=== PATIENT | female | born 1995 | race Caucasian/White ===

== ENCOUNTER 2023-01-21 04:19 | Inpatient (IN) ==
[2023-01-21] MEDS ORDERED: OXYTOCIN 30 UNITS/500 ML BAG IV PRN ×2 (04:33→13:28)
[2023-01-21] MEDS ORDERED: LIDOCAINE 1% LOCAL 20 ML VIAL INFIL PRN (04:33)
--- NOTE | 2023-01-21 04:36 | History & Physical Report ---
Date of Service January 21, 2023 Assessment & Plan (1) 40 weeks gestation of : (2) Normal labor: Plan now demonstrating labor. admit. epidural as desired. arom/pit as indicated. fetus category one. anticipate . History of Present Illness Chief Complaint: contractions Primary Care Provider: Cary Maldonado Angelia Patient is a 27yowf with iup at 40 4/7 weeks who returns to labor and delivery with worsening contractions. Was monitored for several hours and did not change. Now notes contractions much worse. and Delivery Plans IOL 12/24/22 OB Labs: Blood Type A Positive 06/28/22 Antibody Screen NEGATIVE 06/28/22 Hemoglobin 12.6 g/dl (12.0-16.0) 10/25/22 Hematocrit 37.0 % (37.0-47.0) 10/25/22 Mean Corpuscular Volume 86.6 fL (80.0-100.0) 06/28/22 Platelet Count 295 K/uL (130-400) 06/28/22 Rubella IgG Antibody Immune (Immune) 06/28/22 Rapid Plasma Reagin Nonreactive (Nonreactive) 06/28/22 Hepatitis B Surface Antigen. NON-REACTIVE (NON-REACTIVE) 06/28/22 Hepatitis C Antibody (EIA) NON-REACTIVE (NON-REACTIVE) 06/28/22 HIV (1&2) Ag and Ab Confirmation NON-REACTIVE (NON-REACTIVE) 06/28/22 Glucose 1 Hour 50 gm Load 148 mg/dl (70-130) H 08/01/22 OB Optional Labs: Chlamydia trachomatis RNA Not Detected (NotDetected) 06/28/22 Neisseria gonorrhoeae RNA Not Detected (NotDetected) 06/28/22 Labs Reviewed: Declines cf/sma/cfdna/quad--mln gbs neg Allergies Allergy/AdvReac Type Severity Reaction Status Date / Time No Known Allergies Allergy Verified 01/17/23 08:01 Home Medications Medication Instructions Recorded Confirmed Type cetirizine 10 mg tablet (Zyrtec) 10 mg PO DAILY PRN Allergic 01/17/23 01/20/23 History Symptoms fluticasone propionate 50 2 spray intranasal DAILY 01/17/23 01/20/23 History mcg/actuation nasal spray,suspension [place] 3 Fish Oil 1 tab PO DAILY 01/20/23 01/20/23 History cholecalciferol (vitamin D3) 1 tab PO DAILY 01/20/23 01/20/23 History magnesium 250 mg tablet 250 mg PO DAILY 01/20/23 01/20/23 History [id number] 1 mg 1 tab PO DAILY 01/20/23 01/20/23 History tablet Patient History Medical History Seasonal allergies Varicella vaccination Surgical History H/O wisdom tooth extraction Family History Father Colorectal cancer Diabetes Mother Non-alcoholic fatty liver disease Diabetes Grandfather (Maternal) Esophageal cancer Grandmother (Maternal) Dementia Other Heart disease Denies family history of Ovarian cancer Prostate cancer Breast cancer Social History Smoking Status: Never smoker Second Hand Exposure: No; Do You Dip or Chew Tobacco: No; Hx Alcohol Use: No Hx Substance Use: No Preferred Language: Turkmen Communication Ability: Effective Visual Impairment: No Limitations Hearing Ability: Normal Director Of Assessment Required: No Beliefs That Will Affect Care: None marital status: marital status details: Gagandeep Call (29) [phone] Current Living Situation: Spouse Current Living Situation Comment: lives with , daughter and 1 dog current occupational status: employed current occupation: Direct Marketing Coordinator Feels Safe at Home: Yes Assistive Devices: None OB History Past Pregnancies Del. Date GA wks Lbr Lgth wt Sex Type del Anes Place Del Prov ? Comment 02/20/21 40 7-9 F Epidural Other [facility] N Physical Exam Constitutional: WD/WN, vitals as above Gastrointestinal (Abdomen): soft, gravid Psychiatric: A+Ox3, euthymic affect Genitourinary: cx--5-6 per nursing toco==q3-5min efm--140s wtih mod variability, accels present, no decels. Results & Data Vital Signs (Past 12 Hours) Vital Signs Pulse BP 01/21/23 04:27 93 H 141/80 H Coding Level of Care Code None Diagnoses 40 weeks gestation of Z3A.40 Normal labor O80; Z37.9
[2023-01-21 05:00] LABS: Hematocrit (blood only) 38.7 % (37.0-47.0); Mean Corpuscular Hemoglobin 28.8 pg (25.0-34.0); Mean Corpuscular Hgb Conc 33.6 g/dL (32.0-36.0); Mean Corpuscular Volume 85.8 fL (80.0-100.0); Mean Platelet Volume 9.9 fL (9.4-12.4); Platelet Count 218 K/uL (130-400); RDW Coefficient of Variation 13.2 % (11.5-14.5); RDW Standard Deviation 40.6 fL (36.4-46.3); Red Blood Count 4.51 M/uL (4.20-5.40); White Blood Count 11.95 K/ul (4.8-10.8)
[2023-01-21] MEDS ORDERED: fentaNYL citrate PF 100 MCG/2 ML VIAL EPI PRN (05:06)
[2023-01-21] MEDS ORDERED: ONDANSETRON INJ 2 MG/ML 2 ML VIAL IV PRN (05:06)
[2023-01-21] MEDS ORDERED: BUPIVACAINE 0.25% PF 30 ML VIAL EPI STA (05:06)
[2023-01-21] MEDS ORDERED: NALOXONE HCL 0.4 MG/1 ML VIAL/CARP IV PRN (05:06)
[2023-01-21] MEDS ORDERED: ROPIVACAINE 0.5% PF 5 MG/ML 20 ML VIAL EPI PRN (05:06)
[2023-01-21] MEDS ORDERED: LIDOCAINE 2% MPF LOCAL 5 ML VIAL EPI PRN (05:06)
[2023-01-21] MEDS ORDERED: fentaNYL citrate PF 100 MCG/2 ML VIAL EPI STA (05:06)
[2023-01-21] MEDS ORDERED: BUPIVACAINE 0.25% PF 30 ML VIAL EPI PRN (05:06)
[2023-01-21] MEDS ORDERED: NALOXONE HCL 1 MG in SODIUM CHLORIDE 0.9% 1000ML 1,000 ML IV PRN (05:06)
[2023-01-21] MEDS ORDERED: NALBUPHINE HCL INJ 10 MG/ML AMP IV PRN (05:06)
[2023-01-21] MEDS ORDERED: SODIUM CHLORIDE 0.9% PF INJ 10 ML VIAL EPI STA (05:06)
[2023-01-21] MEDS ORDERED: fentaNYL 2MCG/ML ROPIVACAINE 1.25MG/ML 100 ML BAG EPI PRN (05:06)
[2023-01-21] MEDS ORDERED: diphenhydrAMINE 50 MG/ML VIAL IV PRN (05:06)
[2023-01-21] MEDS ORDERED: LIDOCAINE 2%/EPINEPHRINE 1:200,000 20 ML PF EPI STA (05:06)
[2023-01-21] MEDS ORDERED: ePHEDrine sulfate 50 MG/ML AMP IV PRN (05:06)
[2023-01-21] MEDS ORDERED: SODIUM CHLORIDE 0.9% PF INJ 10 ML VIAL EPI PRN (05:06)
--- NOTE | 2023-01-21 05:06 | Anesthesiology Consultation ---
Date of Service January 21, 2023 Assessment & Plan ASA ASA2 Proposed Anesthesia Anesthesia Type: Labor Epidural Risk / Benefits Reviewed With: PT / POA / Parent / Guardian, Accepts Plan and Informed Consent Obtained History Height/Weight Height: 5 ft 6 in Weight: 89.358 kg Allergies Allergy/AdvReac Type Severity Reaction Status Date / Time No Known Allergies Allergy Verified 01/17/23 08:01 Medications Home Medications Medication Instructions Recorded Confirmed Last Taken cetirizine 10 mg tablet (Zyrtec) 10 mg PO DAILY PRN Allergic 01/17/23 01/20/23 01/19/23 22:00 Symptoms fluticasone propionate 50 2 spray intranasal DAILY 01/17/23 01/20/23 01/19/23 22:00 mcg/actuation nasal spray,suspension [place] 3 Fish Oil 1 tab PO DAILY 01/20/23 01/20/23 01/20/23 0900 cholecalciferol (vitamin D3) 1 tab PO DAILY 01/20/23 01/20/23 Unknown magnesium 250 mg tablet 250 mg PO DAILY 01/20/23 01/20/23 01/19/23 22:00 [id number] 1 mg 1 tab PO DAILY 01/20/23 01/20/23 01/20/23 tablet 0800 Past Medical History Medical History Seasonal allergies Varicella vaccination Exercise / Class Metabolic Activity II 4-5 Yardwork/Stairs/Walk up hill Past Family History Family History Father Colorectal cancer Diabetes Mother Non-alcoholic fatty liver disease Diabetes Grandfather (Maternal) Esophageal cancer Grandmother (Maternal) Dementia Other Heart disease Denies family history of Ovarian cancer Prostate cancer Breast cancer Past Surgical History Surgical History H/O wisdom tooth extraction Past Anesthesia History No Hx of Anesthesia Complications and No Family Hx of Anesthesia Complications History of PONV No Hx of PONV and No Hx of Motion Sickness Social History Smoking Status: Never smoker Do You Dip or Chew Tobacco: No Hx Alcohol Use: No Hx Substance Use: No substance use type: does not use Review of Systems denies fever/cough/ colds/ chest pain/ SOB/ TOM denies TOM Physical Exam Vital Signs Last Vital Signs Temp 36.8 C 01/21/23 04:33 Pulse 93 H 01/21/23 04:33 Resp 18 01/21/23 04:33 BP 141/80 H 01/21/23 04:33 ENMT Mouth: no TMJ abnormality and no dentition abnormality Thyromental Distance: > or= 3.5 Finger Breadths Mallampati Class: II Neck neck extension not limited Respiratory normal respiratory effort; no respiratory distress Auscultation: lungs clear to auscultation bilaterally Cardiovascular Rate/Rhythm: regular rate and regular rhythm Neurologic moves all extremities Psychiatric Orientation: alert and oriented x 3 Testing Laboratory Results 01/21/23 04:45
[2023-01-21] MEDS: LACTATED RINGER'S 1,000 ML IV PRN ×3 (05:07→11:58)
[2023-01-21] MEDS ORDERED: BUPIVACAINE 0.25% PF 30 ML VIAL ONE (05:09)
[2023-01-21] MEDS ORDERED: LIDOCAINE 2%/EPINEPHRINE 1:200,000 20 ML PF ONE (05:09)
[2023-01-21] MEDS ORDERED: fentaNYL citrate PF 100 MCG/2 ML VIAL ONE (05:09)
[2023-01-21] MEDS ORDERED: SODIUM CHLORIDE 0.9% PF INJ 10 ML VIAL ONE (05:09)
[2023-01-21] MEDS ORDERED: fentaNYL 2MCG/ML ROPIVACAINE 1.25MG/ML 100 ML BAG EPI ONE ×2 (05:10→11:53)
[2023-01-21] MEDS ORDERED: CALCIUM CARBONATE 500 MG CHEWABLE TAB PO PRN (07:27)
--- NOTE | 2023-01-21 12:59 | Delivery Summary ---
Vaginal Delivery Summary Date of Service January 21, 2023 Vaginal Delivery Summary Spontaneous vaginal delivery the patient admitted had been admitted by Dr. Torres the previous ES evening signout at 7:30 in the morning the patient had an epidural in for category 1 tracing she had ruptured membranes she progressed to fully dilated delivering a baby over occiput anterior position no nuchal cord after delivery of the head the fluid was clear gentle traction on the baby no excessive force live vigorous female cord clamped and cut cord blood obtained placenta removed with traction IV Pitocin started there was no tearing estimated blood loss 150 mL sponge and instrument counts correct oxytocin was started after delivery of the placenta
--- NOTE | 2023-01-21 13:13 | Anesthesia Procedure Note ---
Date of Service January 21, 2023 Anesthesia Post Epidural Note Vital Signs Vital Signs: Temp Pulse Resp BP Pulse Ox 97.7 F 93 H 20 138/68 100 01/21/23 11:00 01/21/23 13:10 01/21/23 11:00 01/21/23 13:10 01/21/23 12:50 Notes Mental Status: alert / awake / arousable and participated in evaluation Nausea / Vomiting: adequately controlled Pain: adequately controlled Airway Patency, RR, SpO2: stable & adequate BP & HR: stable & adequate Hydration State: stable & adequate Neuraxial Anesthesia: was administered and sensory block is resolving Anesthetic Complications: no major complications apparent and Pt Satisfied with anesthetic care Epidural: Removed without complications and With tip intact
[2023-01-21] MEDS ORDERED: bisacodyL 10 MG SUPP PR PRN (13:28)
[2023-01-21] MEDS ORDERED: BENZOCAINE 20% AER SPR 82.5 GM CAN EXT PRN (13:28)
[2023-01-21] MEDS ORDERED: DIPHTHERIA/TETANUS/PERTUSSIS Vaccine (Tdap, Age 7+yrs) 0.5mL SYR/VL IM ONE (13:28)
[2023-01-21] MEDS ORDERED: ACETAMINOPHEN 325 MG TAB PO PRN (13:28)
[2023-01-21] MEDS ORDERED: oxyCODONE/ACETAMINOPHEN 5mg/325mg TAB PO PRN (13:28)
[2023-01-21] MEDS ORDERED: HYDROCORTISONE ACETATE 25 MG SUPP PR PRN (13:28)
[2023-01-21] MEDS ORDERED: OXYTOCIN 30 UNITS/500ML NSS IV ONE (13:32)
[2023-01-21] MEDS: IBUPROFEN 600 MG TAB PO PRN ×2 (19:19→23:30)
[2023-01-21] MEDS: DOCUSATE SODIUM 100 MG CAP PO SCH (20:20)
[2023-01-22] MEDS: IBUPROFEN 600 MG TAB PO PRN ×3 (03:33→12:00)
[2023-01-22 06:57] LABS: Hematocrit (blood only) 38.6 % (37.0-47.0); Hemoglobin 13.2 g/dl (12.0-16.0); Mean Corpuscular Hemoglobin 28.8 pg (25.0-34.0); Mean Corpuscular Hgb Conc 34.2 g/dL (32.0-36.0); Mean Corpuscular Volume 84.3 fL (80.0-100.0); Platelet Count 187 K/uL (130-400); RDW Coefficient of Variation 13.4 % (11.5-14.5); RDW Standard Deviation 40.8 fL (36.4-46.3); Red Blood Count 4.58 M/uL (4.20-5.40); White Blood Count 14.07 K/ul (4.8-10.8)
[2023-01-22] MEDS: DOCUSATE SODIUM 100 MG CAP PO SCH (07:34)
--- NOTE | 2023-01-22 07:38 | Obstetrical Progress Note ---
Date of Service <Nenita Rose DO Noe - Last Filed: 01/22/23 07:38> January 22, 2023 Assessment & Plan <Nenita LunaDO kofi - Last Filed: 01/22/23 07:38> (1) care following vaginal delivery: Patient is PPD 1 s/p and doing well. - Eating well, voiding well, ambulating well - Vitals reviewed and within normal limits - Pain well controlled with analgesics - OOB, ambulation, diet progression as tolerated - Blood type: A+, GBS neg, rubella immune - Plan to discharge today - After discharge, 6 [address] follow up with Dr. Peace <Padma Peace MD, FACOG - Last Filed: 01/22/23 07:41> (1) care following vaginal delivery: Subjective <Nenita LunaDO kofi - Last Filed: 01/22/23 07:38> Patient is a 27 yo female who is now PPD #1 following spontaneous vaginal delivery at 40 4/7 weeks. Reports feeling well this morning. She endorses abdominal cramping and 4/10 pain well managed on analgesics. Voiding without issue. Tolerating regular meals overnight and able to ambulate some. She has passed gas. Persistent lochia with some improvement this morning. Currently breast feeding. Review of Systems Denies fever, chills, sweats. Denies SOB, difficulty breathing, chest pain, palpitations, and chest pressure. Denies breast pain. Denies dysuria. Denies headache or changes in vision. Physical Exam <Nenita WestbrookTasia Liu DO - Last Filed: 01/22/23 07:38> General: Alert and oriented. No acute distress. CV: Regular rate and rhythm. No murmurs. Respiratory: CTA bilaterally. No rhonchi, wheezes, or crackles. No increased work of breathing. Abdomen: Positive bowel sounds. Soft, nontender, non distended. Uterus: Fundus firm and palpable 3 cm below the umbilicus. Lower extremities: No LE edema. No deep calf pain. Results & Data <Nenita WestbrookTasia Liu DO - Last Filed: 01/22/23 07:38> Vital Signs (Past 12 Hours) Vital Signs Temp Pulse Resp BP Pulse Ox O2 Del Method 01/22/23 07:34 36.7 C 78 18 115/77 98 Room Air 01/22/23 03:35 36.5 C 74 18 115/72 97 Room Air 01/21/23 23:30 36.5 C 80 18 112/77 97 Room Air <Padma Peace MD, FACOG - Last Filed: 01/22/23 07:41> Co-Signing Physician Notes Resident Physician Supervision Note: I was present with Dr. Liu during the history and exam. I discussed the case with the resident and agree with the findings and plan as documented in the note. Any exceptions or clarifications are listed here: [None] Documented By: Padma Peace MD, FACOG Resident Activity Tracking <Nenita Liu DO - Last Filed: 01/22/23 07:38> Resident Involvement: Resident Care Provided Care Provided: OB Delivery
[2023-01-22] MEDS ORDERED: PRENATAL VITAMIN 1 TAB PO SCH (08:00)
[2023-01-22] MEDS ORDERED: bisacodyL 5 MG TABEC PO SCH (20:00)
== END 2023-01-22 15:55 | disposition home or self-care (01) | DRG 807 ==
LOC: OPB 04:19 → 4S1 04:21 → 4E2 16:22